=== PATIENT | female | born 2000 | race Caucasian/White ===

== ENCOUNTER 2025-04-24 07:06 | Outpatient (CLI) | payer OTHER, SELFPAY ==
--- NOTE | 2025-04-24 07:15 | CRLHL7_ITS ---
For Patients: As a result of the Century Cures Act, medical imaging exams and procedure reports are released immediately into your electronic medical record. You may view this report before your referring provider. If you have questions, please contact your health care provider. OB ULTRASOUND LESS THAN 14 WEEKS, 04/24/2025 CLINICAL HISTORY: Dating and viability. TECHNIQUE: Real time acevedo scale imaging of the fetus was performed. Transabdominal imaging performed. Patient declined transvaginal imaging. COMPARISON: None. FINDINGS: Imaging: TA. LMP: 02/18/2025. SAVANNAH by LMP: 11/25/2025. GA: 9 weeks 2 days. CRL: 2.2 cm, 8 weeks 6 days. SAVANNAH 11/28/2025. FHR: 178 bpm. GEST SAC: 3.1 cm, appears WNL. YOLK SAC: 3.8 mm, appears WNL. RIGHT OV: N/V. LEFT OV: 2.6 x 2.1 x 3.1, WNL. CL. IMPRESSION: Single living intrauterine measuring 8 weeks 6 days with sonographic due date 11/28/2025. Homar Wills M.D. Diagnostic Radiologist [email or web address] Transcribed: 11:20 am DW/Dictated by: Homar Wills MD @ 04/24/2025 11:03:00 AM (Electronically Signed)
== END 2025-04-24 07:07 | disposition home or self-care (01) ==
LOC: US 07:07
PROVIDERS: Visit Provider Physician Assistant
DX: Z34.91 Encounter for supervision of normal pregnancy, unspecified, first trimester (principal); Z3A.08 8 weeks gestation of pregnancy
CPT/HCPCS: 76801; 83021; 86592; 86703; 86704; 86706; 86762; 86787; 86803; 86850; 86900; 86901; 87086; 87340; 87491; 87591

== ENCOUNTER 2025-04-24 08:35 | Outpatient (CLI) | payer OTHER, SELFPAY ==
[2025-04-24 12:12] LABS: Chlamydia DNA Amplified* NOT DETECTED (No Detected); GC DNA Amplified* NOT DETECTED (No Detected)
== END 2025-04-24 08:36 | disposition home or self-care (01) ==
PROVIDERS: Visit Provider Physician Assistant
DX: Z34.91 Encounter for supervision of normal pregnancy, unspecified, first trimester (principal); Z3A.09 9 weeks gestation of pregnancy
CPT/HCPCS: 83020; 83021; 85660; 86592; 86703; 86704; 86706; 86762; 86787; 86803; 86850; 86900; 86901; 87086; 87340; 87491; 87591

== ENCOUNTER 2025-07-18 09:00 | Outpatient (CLI) | payer OTHER, SELFPAY ==
--- NOTE | 2025-07-18 09:15 | CRLHL7_ITS ---
For Patients: As a result of the Century Cures Act, medical imaging exams and procedure reports are released immediately into your electronic medical record. You may view this report before your referring provider. If you have questions, please contact your health care provider. OBSTETRICAL ULTRASOUND ??? ANATOMY SURVEY, 07/18/2025 INDICATION: screen. CLINICAL HISTORY: LMP: 02/18/2025 SAVANNAH by LMP: 11/25/2025 Gestational age: 21 weeks 3 days TECHNIQUE: Real-time acevedo-scale transabdominal imaging of the fetus was performed. PREVIOUS ULTRASOUND: 04/24/2025 FINDINGS: position: Vertex Cervix: Visualized Technique: Transabdominal Length of closed cervix: 3.2 cm Placenta position: Anterior, posterior Placenta tip to internal os: 9.6 cm Umbilical cord: 3-vessel cord Placental insertion: Bilobed Amniotic fluid: 3.6 cm SDP (greater than/equal to 2 to less than 8 cm) ANATOMY SURVEY: Observed Structures Cerebellum: Yes; 2.0 cm, 20 weeks 5 days Cisterna magna: Yes; 7.0 mm Nuchal fold: Yes; 4.8 mm Lateral ventricle: Yes; 5.1 mm CSP: Yes Midline falx: Yes Choroid plexus: Yes Spine: Yes Stomach: Yes Abdominal cord insert: Yes Urinary bladder: Yes Kidneys: Yes Diaphragm: Yes Nose/lips: Yes Orbital view: Yes Profile: Yes Upper extremities: Yes Lower extremities: Yes Hands: Yes Feet: Yes 4-chamber heart: Yes LVOT: Yes RVOT: Yes 3VV: Yes 3VTV: Yes BIOMETRY BPD: 5.0 cm, 21 weeks 0 days, 30% HC: 18.1 cm, 20 weeks 4 days, 9% AC: 15.5 cm, 20 weeks 5 days, 20% FL: 3.5 cm, 21 weeks 0 days, 24% FL/AC: 22.37% HC/AC ratio: 1.17 heart rate: 147 bpm age by this ultrasound: 20 weeks 6 days SAVANNAH by this ultrasound: 11/29/2025 Estimated weight: 377 grams (0 pounds 13 ounces) Percentile by SAVANNAH: 16% IMPRESSION: 1) Concordance of clinical and sonographic dating. 2) Normal anatomic survey. 3) A bilobed placenta appears to be present with the cord insertion located between the lobes. Attention at 28-week follow-up recommended. HOMAR ELIZABETH M.D. Diagnostic Radiologist [email or web address] Transcribed: 11:[address]/Dictated by: Homar Elizabeth MD @ 07/18/2025 10:47:00 AM (Electronically Signed)
== END 2025-07-18 09:01 | disposition home or self-care (01) ==
LOC: US 09:01
PROVIDERS: Visit Provider Obstetrics & Gynecology
DX: Z34.92 Encounter for supervision of normal pregnancy, unspecified, second trimester (principal); Z3A.21 21 weeks gestation of pregnancy
CPT/HCPCS: 76805

== ENCOUNTER 2025-07-19 08:37 | Outpatient (CLI) | payer OTHER, SELFPAY | END 2025-07-19 08:38 | disposition home or self-care (01) | LOC: US 08:37 | PROVIDERS: Visit Provider Physician Assistant | DX: O43.192 Other malformation of placenta, second trimester (principal); Z3A.21 21 weeks gestation of pregnancy | CPT/HCPCS: 76811 ==

== ENCOUNTER 2025-09-06 14:14 | Outpatient (CLI) | payer OTHER, SELFPAY | END 2025-09-06 14:15 | disposition home or self-care (01) | LOC: NFLDREF 09-10 16:03 | PROVIDERS: Visit Provider Obstetrics & Gynecology | DX: Z34.93 Encounter for supervision of normal pregnancy, unspecified, third trimester (principal) | CPT/HCPCS: 86592 ==

== ENCOUNTER 2025-10-04 15:51 | Outpatient (CLI) | payer OTHER, SELFPAY | END 2025-10-04 15:52 | disposition home or self-care (01) | PROVIDERS: Visit Provider Advanced Practice Midwife | DX: O99.713 Diseases of the skin and subcutaneous tissue complicating pregnancy, third trimester (principal); L29.9 Pruritus, unspecified | CPT/HCPCS: 82239; 84450; 84460 ==

== ENCOUNTER 2025-10-09 06:51 | Outpatient (CLI) | payer OTHER, SELFPAY | END 2025-10-09 06:52 | disposition home or self-care (01) | PROVIDERS: Visit Provider Advanced Practice Midwife | DX: O26.643 Intrahepatic cholestasis of pregnancy, third trimester (principal) | CPT/HCPCS: 82239; 84450; 84460 ==

== ENCOUNTER 2025-10-09 09:06 | Outpatient (CLI) | payer OTHER, SELFPAY ==
--- NOTE | 2025-10-09 09:15 | CRLHL7_ITS ---
For Patients: As a result of the Century Cures Act, medical imaging exams and procedure reports are released immediately into your electronic medical record. You may view this report before your referring provider. If you have questions, please contact your health care provider. OB ULTRASOUND BIOPHYSICAL PROFILE AND GROWTH Clinical History LMP: 02/18/2025. SAVANNAH by LMP: 11/25/2025. GA: 33 w, 2 d. Single. Comparison: 07/19/2025, 07/18/2025, 04/24/2025. INDICATION: Cholestasis. TECHNIQUE: Real time acevedo scale imaging of the fetus was performed. Transabdominal imaging performed. CERVIX: Not visualized. POSITIONING: Vertex. AMNIOTIC FLUID: 5.3 cm SDP (N: greater than 2 x 1 cm) BIOPHYSICAL PROFILE: Gross body movements: 2. tone: 2. Respiratory activity: 2. Amniotic fluid: 2. SDP (N: greater than 2 x 1 cm). Total score: 8. PLACENTA: Technique: Transabdominal. PLACENTA POSITION: Anterior. DOPPLER: heart rate: 155 bpm. BIOMETRY: BPD: 8.3 cm. 33 w, 1 d, 41.1 percent. HC: 31.7 cm. 34 w, 1 d, 34.5 percent. AC: 30.9 cm. 34 w, 6 d, 88.8 percent. FL: 6.0 cm. 31 w, 0 d, <3 percent. FL/AC ratio: 19.3 percent. HC/AC ratio: 1.0. EFW: 2221 g. Weight: 4 lbs, 14 oz. age by this US: 33 w, 2 d. SAVANNAH by this US: 11/25/2025. Percentile by SAVANNAH: 49.7 percent. IMPRESSION: 1. Normal biophysical profile 05/26. 2. Sonographic gestational age 33 weeks 2 days and sonographic due date 11/25/2025. Good correlation with dates. Normal interval growth. 3. Estimated weight 50th percentile. Abdominal circumference 89th percentile. Femur length less than 3rd percentile. Homar Wills M.D. Diagnostic Radiologist [email or web address] SP/Dictated by: Homar Wills MD @ 10/09/2025 5:03:00 PM (Electronically Signed)
== END 2025-10-09 09:07 | disposition home or self-care (01) ==
LOC: US 09:06
PROVIDERS: Visit Provider Midwife
DX: O26.643 Intrahepatic cholestasis of pregnancy, third trimester (principal); Z3A.33 33 weeks gestation of pregnancy
CPT/HCPCS: 76816; 76819

== ENCOUNTER 2025-10-10 21:32 | Outpatient (CLI) | payer OTHER, SELFPAY ==
[2025-10-10] VITALS (7 sets, daily range): BP systolic 128; BP diastolic 85; PULSE 81–104; TEMP 37.1; O2SAT 97–98; BMI 30.4
--- NOTE | 2025-10-10 22:01 | US_ITS ---
Patient: BHAVIN BOWEN Facility:?[facility] Patient ID:?[id number] Site Patient ID:?[id number]. Site :?[id number] Study:?US-Abdomen RUQ-10/10/2025 11:04:10 PM Ordering Physician:Jose Ponce Final Report: INDICATION: Abdominal pain. TECHNIQUE: Ultrasound abdomen limited. Sonographic images of the right upper quadrant were obtained using acevedo-scale and color Doppler images. COMPARISON: None. FINDINGS: Liver: Normal in size and echotexture. No suspicious masses. No intrahepatic biliary dilatation. Gallbladder: Gallbladder sludge. Normal wall thickness. No pericholecystic fluid. Common bile duct: 3 mm. Pancreas: Not visualized likely due to overlying bowel gas. Right kidney: Normal in size. Normal echotexture and cortex. No suspicious masses, stones, or hydronephrosis. Proximal abdominal aorta: Normal in caliber. IVC: Patent. Main portal vein: Patent. Ascites: None visualized. IMPRESSION: Gallbladder sludge. No secondary signs of acute cholecystitis. No biliary ductal dilatation. Dictated by Jovany Greer MD @ 10/10/2025 11:23:52 PM Signed by:?Jovany Greer MD @10/10/2025 11:23:52 PM (Electronic Signature)
[2025-10-10 22:04] LABS: Appearance Urine Clear (Clear)
[2025-10-10] MEDS: BETAMETHASONE SOD PHOS/ACETATE 6 MG/ML ML 12 MG IM (22:20)
[2025-10-10 22:49] LABS: Albumin* 3.4 g/dL (3.3-5.0)
[2025-10-10 22:52] LABS: Alanine Aminotransferase* 161 U/L (4-35); Alkaline Phosphatase* 297 U/L (40-150); Aspartate Amino Transferase* 90 U/L (12-35); Bilirubin Direct* 0.3 mg/dL (0.0-0.5); Bilirubin Total* 0.6 mg/dL (0.1-1.5); Total Protein* 6.8 g/dL (6.0-8.3)
--- NOTE | 2025-10-17 11:12 | PC.OBNST ---
NST Note NST Note Start: 10/10/25 21:35 Freq: ONCE Status: Discharge Protocol: Document 10/10/25 23:25 MRN (Rec: 10/10/25 23:25 MRN [id number]) NST Note 1 Para (# of births) 0 EDC 11/25/25 Gestational Age In 33 Weeks & 3 Days Weeks & Days Patient Presented Other with Complaint(s) of Other Complaints RUQ pain Reactive Yes Appropriate for Yes Gestational Age RN Raudel Rubio RN Date 10/10/25 Reactive Yes Appropriate for Yes Gestational Age NED Liu RN Date 10/10/25 OB NST charge Yes Complete NST Note Yes via Write Note The provider's electronic signature indicates the NST is reactive/appropriate for gestational age. *Note to provider: If an addendum is required, open the patient's chart and click on the note under the Nurse/Allied Health tab.
== END 2025-10-10 23:32 | disposition home or self-care (01) ==
LOC: OB OUT 21:33 → OB 21:33
PROVIDERS: Visit Provider Obstetrics & Gynecology
DX: O26.893 Other specified pregnancy related conditions, third trimester (principal); R10.11 Right upper quadrant pain; Z3A.33 33 weeks gestation of pregnancy
CPT/HCPCS: 36415; 59025; 76705; 80076; 81001; 81003; 87086; G0463; J0702

== ENCOUNTER 2025-10-11 17:56 | Outpatient (CLI) | payer OTHER, SELFPAY ==
[2025-10-11] MEDS: BETAMETHASONE SOD PHOS/ACETATE 6 MG/ML ML 12 MG IM (18:04)
== END 2025-10-11 18:10 | disposition home or self-care (01) ==
LOC: OB CLI 17:56 → OB 17:58
PROVIDERS: Visit Provider Obstetrics & Gynecology
DX: O26.643 Intrahepatic cholestasis of pregnancy, third trimester (principal); K83.1 Obstruction of bile duct; Z3A.33 33 weeks gestation of pregnancy
CPT/HCPCS: G0463; J0702

== ENCOUNTER 2025-10-16 08:59 | Outpatient (CLI) | payer OTHER, SELFPAY | END 2025-10-16 09:00 | disposition home or self-care (01) | PROVIDERS: Visit Provider Obstetrics & Gynecology | DX: O26.643 Intrahepatic cholestasis of pregnancy, third trimester (principal) | CPT/HCPCS: 82239; 84450; 84460 ==